=== PATIENT | female | born 1990 | race Caucasian/White ===

== ENCOUNTER 2021-09-12 21:29 | Emergency (ER) | payer OTHER ==
[2021-09-12] MEDS ORDERED: methylPREDNISolone Sodium Succinate 125 MG/2 ML SDV IVPUSH ONE (21:32)
[2021-09-12] MEDS ORDERED: Famotidine 20 MG Tab PO ONE (21:32)
[2021-09-12] MEDS ORDERED: Sodium Chloride 0.9% 10 ML Syringe FLUSH PRN (21:33)
== END 2021-09-12 23:38 | disposition home or self-care (01) ==
LOC: JP.ED 21:29
DX: T78.05XA Anaphylactic reaction due to tree nuts and seeds, initial encounter (principal); Z91.040 Latex allergy status; Z91.018 Allergy to other foods; Z88.1 Allergy status to other antibiotic agents
CPT/HCPCS: 96374; 99282; 99284-25; A9270-GY; J2930